=== PATIENT | male | born 1980 | race Caucasian/White ===

== ENCOUNTER → 2021-10-19 | Emergency (ER) | payer MEDICAID, OTHER ==
[~2021-10-19] VITALS: Ht 182.9 cm; Wt 82.8 kg
[~2021-10-19] MED LIST: DOCU-94 PO; SULF400T11 PO
[2021-10-19 16:02] VITALS: BP 110/72
== END | disposition home or self-care (01) ==
LOC: ER 15:53
DX: K59.00 Constipation, unspecified (principal)
CPT/HCPCS: 74176

== ENCOUNTER 2021-10-20 13:04 | Emergency (ER) | payer MEDICAID ==
[~2021-10-20] VITALS: Ht 182.9 cm; Wt 82.6 kg
[2021-10-20 13:04] VITALS: BP 116/74
[~2021-10-20 13:04] MED LIST changes: -SULF400T11 PO
[2021-10-20 15:12] LABS: Basophils # (auto) 0 10 ^3/uL (0-0.2); Basophils % (auto) 0.3 % (0.0-2.0); Eosinophils # (auto) 0 10 ^3/uL (0-0.8); Eosinophils % (auto) 0.5 % (0.0-7.0); Hematocrit 41.5 % (41.0-53.0); Hemoglobin 14.3 g/dL (13.5-17.5); Lymphocytes # (auto) 1.8 10 ^3/uL (0.4-5.4); Mean Corpuscular Hemoglobin 30.2 pg (28.0-32.0); Mean Corpuscular Hgb Conc. 34.5 g/dL (32.0-36.0); Mean Corpuscular Volume 87.5 fL (80.0-100.0); Monocytes # (auto) 0.5 10 ^3/uL (0-1.3); Monocytes % (auto) 5.8 % (0.0-12.0); Neutrophils # (auto) 5.7 10 ^3/uL (1.6-8.6); Neutrophils % (auto) 71.4 % (37.0-80.0); Nucleated Red Blood Cells % 0.1 %; Red Blood Cells 4.74 10^6/uL (4.5-5.90); Red Cell Distribution Width 13.3 % (11.8-14.3)
[2021-10-20 15:28] LABS: Albumin 4.1 g/dL (3.4-5.0); BUN/Creatinine Ratio 15.5; Calcium 8.7 mg/dL (8.5-10.1); Potassium 3.5 mmol/L (3.5-5.1)
[2021-10-20 15:39] LABS: Bilirubin, Total 0.3 mg/dL (0.2-1.0); Magnesium 2.3 mg/dL (1.6-2.6); Total Protein 7.5 g/dL (6.4-8.2)
[2021-10-20 16:30] LABS: Urine Amorphous Crystal FEW /hpf (None Seen); Urine Bacteria NONE SEEN /hpf (None Seen); Urine Blood Negative /uL (Negative); Urine Mucus FEW (None Seen); Urine Specific Gravity 1.021 (1.001-1.035); Urine WBC 3 /hpf (0 - 3)
[2021-10-20 16:40] LABS: Alcohol, Urine < 3.0 mg/dL (0-10); Amphetamine Screen, Urine NEGATIVE (NEGATIVE); Barbiturate Scree,Urine NEGATIVE (NEGATIVE); Benzodiazephine Screen, Urine NEGATIVE (NEGATIVE); Cannabinoid Screen, Urine NEGATIVE (NEGATIVE); Cocaine Screen, Urine NEGATIVE (NEGATIVE); Opiate Scree,Urine NEGATIVE (NEGATIVE); Phencyclidine Screen, Urine NEGATIVE (NEGATIVE)
[2021-10-21] MEDS ORDERED: SULF400T11 PO (11:49)
== END 2021-10-20 17:18 | disposition home or self-care (01) ==
LOC: ER 13:04
DX: L02.211 Cutaneous abscess of abdominal wall (principal); K59.00 Constipation, unspecified; F11.20 Opioid dependence, uncomplicated; Z79.899 Other long term (current) drug therapy
CPT/HCPCS: 36415; 80053; 80307; 81001; 83690; 83735; 85025

== ENCOUNTER 2021-10-21 09:37 | Emergency (ER) | payer MEDICAID ==
[~2021-10-21] VITALS: Ht 182.9 cm; Wt 82.6 kg
[2021-10-21 10:00] VITALS: BP 113/81
[2021-10-21 10:44] LABS: Urine Amorphous Crystal MOD /hpf (None Seen); Urine Bacteria FEW /hpf (None Seen); Urine Blood Negative /uL (Negative); Urine Budding Yeast OCCASIONAL /hpf (None Seen); Urine Specific Gravity 1.019 (1.001-1.035); Urine WBC 413 /hpf (0 - 3); Urine WBC Clumps PRESENT /hpf (None Seen)
[2021-10-21] MEDS ORDERED: SULF400T11 PO (11:49)
[2021-10-21 13:42] LABS: Alcohol, Urine < 3.0 mg/dL (0-10); Amphetamine Screen, Urine NEGATIVE (NEGATIVE); Barbiturate Scree,Urine NEGATIVE (NEGATIVE); Benzodiazephine Screen, Urine NEGATIVE (NEGATIVE); Cannabinoid Screen, Urine NEGATIVE (NEGATIVE); Cocaine Screen, Urine NEGATIVE (NEGATIVE); Opiate Scree,Urine NEGATIVE (NEGATIVE); Phencyclidine Screen, Urine NEGATIVE (NEGATIVE)
== END 2021-10-21 12:32 | disposition home or self-care (01) ==
LOC: ER 09:46
DX: N20.0 Calculus of kidney (principal); N39.0 Urinary tract infection, site not specified
CPT/HCPCS: 74176; 80307; 81001; 93005

== ENCOUNTER 2021-12-11 13:48 | Emergency (ER) | payer MEDICAID ==
[~2021-12-11] VITALS: Ht 182.9 cm; Wt 66.0 kg
[~2021-12-11 13:48] MED LIST changes: +SULF400T11 PO
[2021-12-11 13:50] VITALS: BP 118/86
[2021-12-11 15:47] LABS: Basophils # (auto) 0 10 ^3/uL (0-0.2); Basophils % (auto) 0.5 % (0.0-2.0); Eosinophils # (auto) 0 10 ^3/uL (0-0.8); Eosinophils % (auto) 0.5 % (0.0-7.0); Hematocrit 41.9 % (41.0-53.0); Hemoglobin 13.7 g/dL (13.5-17.5); Lymphocytes # (auto) 1.4 10 ^3/uL (0.4-5.4); Lymphocytes % (auto) 18.7 % (10.0-50.0); Mean Corpuscular Hemoglobin 29.1 pg (28.0-32.0); Mean Corpuscular Hgb Conc. 32.8 g/dL (32.0-36.0); Mean Corpuscular Volume 88.7 fL (80.0-100.0); Monocytes # (auto) 0.5 10 ^3/uL (0-1.3); Monocytes % (auto) 6.4 % (0.0-12.0); Neutrophils # (auto) 5.5 10 ^3/uL (1.6-8.6); Neutrophils % (auto) 73.9 % (37.0-80.0); Nucleated Red Blood Cells % 0.2 %; Red Blood Cells 4.73 10^6/uL (4.5-5.90); Red Cell Distribution Width 12.7 % (11.8-14.3); White Blood Cell 7.4 10^3/uL (4.4-10.8)
[2021-12-11 16:04] LABS: Albumin 3.9 g/dL (3.4-5.0); BUN/Creatinine Ratio 14.9; Calcium 8.5 mg/dL (8.5-10.1); Magnesium 2.8 mg/dL (1.6-2.6); Potassium 3.7 mmol/L (3.5-5.1)
[2021-12-11 16:06] LABS: INR 0.96 (0.9-1.15); Partial Thromboplastin Time 36.9 sec (24.6-33.4)
[2021-12-11 16:07] LABS: Bilirubin, Total 0.3 mg/dL (0.2-1.0)
[2021-12-11 16:08] LABS: Total Protein 7.1 g/dL (6.4-8.2)
[2021-12-11 22:16] LABS: Urine Bacteria NONE SEEN /hpf (None Seen); Urine Blood Negative /uL (Negative); Urine Specific Gravity 1.002 (1.001-1.035); Urine WBC <1 /hpf (0 - 3)
== END 2021-12-12 01:07 | disposition left against medical advice (07) ==
LOC: ER 13:48
DX: R07.89 Other chest pain (principal); Z53.21 Procedure and treatment not carried out due to patient leaving prior to being seen by health care provider
CPT/HCPCS: 36415; 71045; 80053; 81001; 83735; 83880; 84443; 84484; 85025; 85610; 85730; 93005

== ENCOUNTER 2025-04-22 11:15 | Emergency (ER) | payer MEDICAID ==
[~2025-04-22] VITALS: Ht 180.3 cm; Wt 69.4 kg
--- NOTE | 2025-04-22 12:15 | ED.PDOC ---
SOB-HPI HPI Comments This is a 44 year old male presenting to the ED with cough and OD. Patient reports that he has had a cough for the past few days, however, he had also smoked Fentanyl last night. Patient declines to have any Narcan at this time. Patient denies any chest pain, fever, SOB, dizziness, or N/V. Chief Complaint: Cough Time Seen by MD: 12:13 Primary Care Provider: COLTON Conner notes: Nurses Notes, Medications, Allergies Information Source: Patient Mode of Arrival: Ambulatory Severity: Moderate Timing: Hours Duration: Since onset Context: At Rest History of: None Prehospital treatment: None Modifying Factors: Nothing Associated Signs and Symptoms: Cough If cough with SOB: Non-Productive Past Medical History PAST MEDICAL HISTORY: Denies Surgical History: Hernia Repair Family History Family History: Reviewed,noncontributory to illness Social History Smoker: Non-Smoker Alcohol: Sober Drugs: Heroin, Other (Fentanyl) Lives In: Home Constitutional: denies: chills, diaphoresis, fatigue, fever, malaise, sweats, weakness, others EENTM: denies: blurred vision, double vision, ear bleeding, ear discharge, ear drainage, ear pain, ear ringing, eye pain, eye redness, hearing loss, mouth pain , mouth swelling, nasal discharge, nose bleeding, nose congestion, nose pain, photophobia, tearing, throat pain, throat swelling, voice changes, others Respiratory: reports: cough; denies: hemoptysis, orthopnea, SOB at rest, shortness of breath, SOB with excertion, stridor, wheezing, others Cardiovascular: denies: chest pain, dizzy spells, diaphoresis, Dyspnea on exertion, edema, irregular heart beat, left arm pain, lightheadedness, palpitations, PND, syncope, others Gastrointestinal: denies: abdomen distended, abdominal pain, blood streaked bowels, constipated, diarrhea, dysphagia, difficulty swallowing, hematemesis, melena, nausea, poor appetite, poor fluid intake, rectal bleeding, rectal pain, vomiting, others Genitourinary: denies: burning, dysuria, flank pain, frequency, hematuria, incontinence, penile discharge, penile sore, pain, testicle pain, testicle swelling, urgency, others Neurological: denies: dizziness, fainting, headache, left sided numbness, left sided weakness, numbness, paresthesia, pre-existing deficit, right sided numbness, right sided weakness, seizure, speech problems, tingling, tremors, weakness, others Musculoskeletal: denies: back pain, gout, joint pain, joint swelling, muscle pain, muscle stiffness, neck pain, others Integumetry: denies: bruises, change in color, change in hair/nails, dryness, laceration, lesions, lumps, rash, wounds, others Allergic/Immunocompromised: denies: Difficulty Healing, Frequent Infections, Hives, Itching, others Hematologic/Lymphatic: denies: anemia, blood clots, easy bleeding, easy bruising, swollen glands, others Endocrine: denies: excessive hunger, excessive sweating, excessive thirst, excessive urination, flushing, intolerance to cold, intolerance to heat, unexplained weight gain, unexplained weight loss, others Psychiatric: denies: anxiety, bipolar disorder, depression, hopeless, panic disorder, schizophrenia, sleepless, suicidal, others All Other Systems: Reviewed and Negative Physical Exam General Appearance: No Apparent Distress, Normal HEENT: Normal ENT Inspection, Pharynx Normal, TMs Normal Neck: Full Range of Motion, Non-Tender, Normal, Normal Inspection Respiratory: Chest Non-Tender, Lungs Clear, No Accessory Muscle Use, No Respiratory Distress, Normal Breath Sounds Cardiovascular: No Edema, No JVD, No Murmur, No Gallop, Normal Peripheral Pulses, Other (Bradycardic) Breast Exam: Deferred Gastrointestinal: No Organomegaly, Non Tender, No Pulsatile Mass, Normal Bowel Sounds, Soft Genitalia: Deferred Pelvic: Deferred Rectal: Deferred Extremities: No calf tenderness, Normal capillary refill, Normal inspection, Normal range of motion, Non-tender, No pedal edema Musculoskeletal : Apperance: Normal Neurologic: Alert, aircraft engine technician II-XII nml as Tested, No Motor Deficits, Normal Affect, Normal Mood, No Sensory Deficits Cerebellar Function: Normal Reflexes: Normal Skin: Dry, Normal Color, Warm Lymphatic: No Adenopathy Was a procedure done? Was a procedure done?: No Differential Dx Differential Diagnosis: Other (Opiate overdose) X-Ray, Labs, Meds, VS Vital Signs Date Time Temp Pulse Resp B/P (MAP) Pulse Ox O2 Delivery O2 Flow Rate FiO2 04/22/25 13:01 46 14 97 Room Air* 0 21 04/22/25 13:01 98.0 46 14 110/75 (87) 97 98.0 04/22/25 13:01 14 97 Room Air* 0 21 04/22/25 12:00 97.5 58 11 111/67 (82) 98 97.5 04/22/25 11:50 Room Air* 0 21 04/22/25 11:20 97.7 62 16 133/77 97 97.7 Time of 1ST Reevaluation: 13:12 Reevaluation 1ST: Improved Patient Education/Counseling: Diagnosis, Treatment Family Education/Counseling: No Family Present SEPSIS Sepsis Screen Date sepsis recognized/suspect: Apr 22, 2025 Time Sepsis recognized/suspect: 112 Recent Procedure: No On Antibiotic Therapy: No Respiratory Rate >20: No Heart Rate >90: No Temp<36 C (96.8 F) or >38.3 C: No SBP <90 or MAP <65 mmHG: No New Acute Mental Status Change: No Is the patient on CPAP, BIPAP,: No Physician Orders Chest Portable (04/22/25 11:46) Vital Signs Date Time Temp Pulse Resp B/P (MAP) Pulse Ox O2 Delivery O2 Flow Rate FiO2 04/22/25 13:01 46 14 97 Room Air* 0 21 04/22/25 13:01 98.0 46 14 110/75 (87) 97 98.0 04/22/25 13:01 14 97 Room Air* 0 21 04/22/25 12:00 97.5 58 11 111/67 (82) 98 97.5 04/22/25 11:50 Room Air* 0 21 04/22/25 11:20 97.7 62 16 133/77 97 97.7 Departure 1 Departure Time of Disposition: 16:09 (Patient's bradycardia the cough is likely secondary to smoking fentanyl. Patient refusing Narcan. Patient's workup is otherwise be nign.) Impression: Primary Impression: Opiate overdose Disposition: HOME / SELF CARE / HOMELESS Condition: Stable Additional Instructions: Do not use drugs. There are resources to help you quit. You can call: [phone] If your symptoms worsen or you have any other concerns please return to the emergency room. Discharged With: Self Critical Care Note Critical Care Time?: No Stability Stability form required: No Heart Score Heart Score: Heart Score Response (Comments) Value History N/A 0 EKG N/A 0 Age N/A 0 Risk Factors N/A 0 Troponin N/A 0 Total 0 I personally scribed for MARIO OWUSU MD ([email or web address]) on 04/22/25 at 12:15. Electronically submitted by Ivan Jacome ([email or web address]). MARIO OWUSU MD Apr 22, 2025 12:15
--- NOTE | 2025-04-22 12:36 | DVH ---
EXAM: XY CHEST PORTABLE HISTORY: sob TECHNIQUE: 1 view of the chest COMPARISON: CHEST PORTABLE on DOS: 12/11/21 FINDINGS/IMPRESSION: LUNGS: No pleural effusion, consolidation, or pneumothorax. MEDIASTINUM: Unremarkable. BONES: No acute osseous abnormality. OTHER: None.
[2025-04-22 13:01] VITALS: PULSE 46; RESP 14; O2SAT 97
[2025-04-22 16:00] VITALS: TEMP 98.2
[2025-04-22 17:00] VITALS: BP 109/65; PULSE 48; RESP 14; O2SAT 96
== END 2025-04-22 19:39 | disposition home or self-care (01) ==
LOC: ER 11:15
DX: T40.601A Poisoning by unspecified narcotics, accidental (unintentional), initial encounter (principal); Z98.890 Other specified postprocedural states; Y92.89 Other specified places as the place of occurrence of the external cause
CPT/HCPCS: 71045